=== PATIENT | male | born 1965 | race African-American/Black ===

== ENCOUNTER 2019-01-24 10:00 | Emergency (ER) | payer BC ==
[~2019-01-24] VITALS: Ht 180.3 cm; Wt 97.7 kg
[2019-01-24 10:02] VITALS: Ht 180.3 cm; Wt 97.7 kg
[2019-01-24] MEDS ORDERED: SOD CHLORIDE 0.9% 1,000 ML IV STA ×3 (10:23→18:51)
[2019-01-24] MEDS ORDERED: KETOROLAC 15 MG INJ IV STA (10:23)
[2019-01-24] MEDS ORDERED: ONDANSETRON 4 MG INJ IV STA ×4 (10:23→19:28)
[2019-01-24] MEDS ORDERED: HYDROmorphONE 0.5 MG/0.5 ML SYG IV STA ×2 (11:45→11:49)
[2019-01-24] MEDS ORDERED: HYDROmorphONE 1 MG/ML SYG ONE (11:48)
[2019-01-24] MEDS ORDERED: HYDROmorphONE 1 MG/ML SYG IV SCH (12:30)
[2019-01-24] MEDS ORDERED: DICY10CA40 PO (12:37)
[2019-01-24] MEDS ORDERED: ONDA4TAB8 PO (12:37)
--- NOTE | 2019-01-24 12:40 | ERD ---
ER Documentation Chief Complaint Chief Complaint ABDOMINAL PAIN/VOMITITNG HPI 53-year-old male presents the emergency department complaining abdominal pain. States over the last 2 weeks, he had a diffuse nonspecific visceral abdominal discomfort that occurred after eating hot dogs at a local gas station. He had no significant diarrhea. This is come and gone over the last 2 weeks. Over the last 24 hours, he tells me that his epigastric pain is gotten intensely worse. It is localized only in the epigastric area but does not radiate. Associated with nausea and nonbilious nonbloody emesis. He reports no fevers chills or uri nary symptoms. ROS All systems reviewed and are negative except as per history of present illness. Medications Home Meds Active Scripts Ondansetron Hcl* (Zofran*) 4 Mg Tablet, 4 MG PO Q6H for NAUSEA AND/OR VOMITING, #30 TAB Prov:YAN MEJIA 01/24/19 Dicyclomine HCl (Dicyclomine HCl) 10 Mg Capsule, 10 MG PO TID PRN for ABDOMINAL CRAMPING, #20 CAP Prov:YAN MEJIA 01/24/19 Allergies Allergies: Coded Allergies: No Known Allergy (Unverified , 01/24/19) PMhx/Soc History of Surgery: Yes (RIGHT FOOT SX) Anesthesia Reaction: No Hx Neurological Disorder: No Hx Respiratory Disorders: No Hx Cardiac Disorders: No Hx Psychiatric Problems: No Hx Miscellaneous Medical Probl: No Hx Alcohol Use: No Hx Substance Use: Yes (marijuana) Hx Tobacco Use: Yes (MARIJUANA) Smoking Status: Current some day smoker FmHx Noncontributory for chief complaint Physical Exam Vitals Vital Signs Date Temp Pulse Resp B/P (MAP) Pulse Ox O2 O2 Flow FiO2 Time Delivery Rate 01/24/19 98.8 80 18 153/78 99 10:02 (103) Physical Exam GENERAL: The patient is well developed and appropriate for usual state of health in no apparent distress HEENT: Pupils equal, round, and reactive to light. EOMI. There is no scleral icterus. NECK: C-spine is soft and supple, there is no meningismus. There is no cervical lymphadenopathy. LUNGS: Clear to auscultation bilaterally. There are no rales, wheezes or rhonchi. HEART: Regular rate and rhythm, no murmurs, clicks, rubs or gallops. ABDOMEN: Soft, non-tender, non-distended. There are bowel sounds in all four quadrants. No rebound or guarding. EXTREMITIES: There is no peripheral cyanosis or edema. No focal swelling or erythema. NEURO: The patient moves all four extremities with 5/5 strength. Cranial nerves II - XII are intact. Normal gait. Alert and oriented SKIN: There is no apparent rash or petechiae. HEME/LYMPHATIC: There is no evidence of excessive bruising or lymphedema. PSYCHIATRIC: The patient does not appear anxious or depressed. Result Diagram: 01/24/19 1044 01/24/19 1044 Results 24 hrs Laboratory Tests Test 01/24/19 10:44 White Blood Count 11.5 10^3/ul Red Blood Count 4.71 10^6/ul Hemoglobin 13.6 g/dl Hematocrit 44.4 % Mean Corpuscular Volume 94.3 fl Mean Corpuscular Hemoglobin 28.9 pg Mean Corpuscular Hemoglobin Concent 30.6 g/dl Red Cell Distribution Width 12.7 % Platelet Count 251 10^3/UL Mean Platelet Volume 9.9 fl Immature Granulocytes % 0.600 % Neutrophils % 74.4 % Lymphocytes % 18.8 % Monocytes % 5.5 % Eosinophils % 0.4 % Basophils % 0.3 % Nucleated Red Blood Cells % 0.0 /100WBC Immature Granulocytes # 0.070 10^3/ul Neutrophils # 8.5 10^3/ul Lymphocytes # 2.2 10^3/ul Monocytes # 0.6 10^3/ul Eosinophils # 0.1 10^3/ul Basophils # 0.0 10^3/ul Nucleated Red Blood Cells # 0.0 10^3/ul Sodium Level 141 mmol/L Potassium Level 3.9 mmol/L Chloride Level 103 mmol/L Carbon Dioxide Level 23 mmol/L Anion Gap 15 Blood Urea Nitrogen 9 mg/dl Creatinine 0.99 mg/dl Est Glomerular Filtrat Rate mL/min > 60 mL/min Glucose Level 149 mg/dl Calcium Level 9.8 mg/dl Total Bilirubin 0.5 mg/dl Direct Bilirubin 0.00 mg/dl Indirect Bilirubin 0.5 mg/dl Aspartate Amino Transf (AST/SGOT) 24 IU/L Alanine Aminotransferase (ALT/SGPT) 23 IU/L Alkaline Phosphatase 96 IU/L Total Protein 8.1 g/dl Albumin 4.7 g/dl Globulin 3.40 g/dl Albumin/Globulin Ratio 1.38 Lipase 108 U/L Current Medications Medications Dose Sig/Jacky Start Time Status Last (Trade) Ordered Route PRN Stop Time Admin Dose Reason Admin Sodium 1,000 ml @ Q1H STAT 01/24/19 DC 01/24/19 Chloride 1,000 mls/hr IV 10:23 01/24/19 10:39 11:22 Ondansetron 4 mg ONCE STAT 01/24/19 DC 01/24/19 HCl (Zofran IV 10:23 01/24/19 10:38 Inj) 10:24 Ketorolac 15 mg ONCE STAT 01/24/19 DC 01/24/19 Tromethamine IV 10:23 01/24/19 10:39 (Toradol) 10:24 1 mg ONCE STAT 01/24/19 Cancel Hydromorphone IV 11:45 01/24/19 HCl 11:46 (Dilaudid) Ondansetron 4 mg ONCE STAT 01/24/19 DC 01/24/19 HCl (Zofran IV 11:45 01/24/19 11:54 Inj) 11:49 1 mg STK-MED 01/24/19 DC Hydromorphone ONCE .ROUTE 11:48 01/24/19 HCl 11:49 (Dilaudid) 1 mg ONCE STAT 01/24/19 Cancel Hydromorphone IV 11:49 01/24/19 HCl 11:50 (Dilaudid) Ondansetron 4 mg ONCE STAT 01/24/19 DC HCl (Zofran IV 11:49 01/24/19 Inj) 11:50 1 mg ONCE IV 01/24/19 01/24/19 Hydromorphone 12:30 01/24/19 12:25 HCl 13:00 (Dilaudid) Procedures/MDM Patient was taken to a room, seen and evaluated. Comfort measures were initiated. Diagnostic tests were ordered and reviewed. 3 LEAD RHYTHM STRIP: Normal sinus rhythm without ectopy RADIOLOGY: Reviewed with the radiologist REEVALUATION: 1230: Diagnostic tests were appreciated. Serial examinations the abdomen remained benign. MEDICAL DECISION MAKING: Patient presents with abdominal pain of uncertain etiology. Differential diagnosis considered includes appendicitis, diverticulitis, cholecystitis and other intra-abdominal medical and surgical concerns. I have reviewed the patients lab studies and imaging as well as multiple examinations of the abdomen. Initial diagnostic tests and clinical presentation show no evidence of high-risk intra-abdominal concerns. He is a daily marijuana smoker and this may be causing some of the GI upset. Overall, he has no evidence of significant infection, dehydration or surgical concerns and now seems appropriate for outpatient supportive care. Departure Diagnosis: Primary Impression: Abdominal pain Condition: Stable Patient Instructions: Abdominal Pain Additional Instructions: See your doctor for follow-up as discussed. Take a copy of your test results, if appropriate, to this follow-up visit. See your doctor or return here if your symptoms do not improve as expected. At any time, please return to the emergency department for any change or worsening in her symptoms. YAN MEJIA Jan 24, 2019 12:40
[2019-01-24] MEDS ORDERED: PROCHLORPERAZINE 10 MG INJ IM ONE (17:30)
[2019-01-24] MEDS ORDERED: METOCLOPRAMIDE 10 MG INJ IV STA (18:02)
[2019-01-24] MEDS ORDERED: DICYCLOMINE 10 MG CAP PO ONE (18:30)
[2019-01-24] MEDS ORDERED: PROCHLORPERAZINE 10 MG INJ IV ONE (18:30)
[2019-01-24 18:48] VITALS: BP 165/89; PULSE 72; RESP 16
[2019-01-24] MEDS ORDERED: HYDROmorphONE 1 MG/ML SYG IV STA (19:28)
== END 2019-01-24 19:40 | disposition home or self-care (01) ==
LOC: E/R 10:00 → EDBD 10:00 → E/R 19:40
DX: R10.13 Epigastric pain (principal); F17.210 Nicotine dependence, cigarettes, uncomplicated; R11.2 Nausea with vomiting, unspecified
CPT/HCPCS: 36415; 74176; 80053; 81001; 83690; 85025; 96372; 96374; 96375; 96376; 99285; J0780; J1170; J1885; J2405; J2765; J7030